=== PATIENT | female | born 1990 | race Caucasian/White ===

== ENCOUNTER 2017-06-29 16:06 | Emergency (ER) | payer OTHER ==
[~2017-06-29] VITALS: Ht 160 cm; Wt 112.5 kg
[2017-06-29 16:12] VITALS: Ht 160 cm; Wt 112.5 kg
[2017-06-29 17:06] LABS: BASOPHIL % 0.4 % (0-2); PLATELET COUNT 315 x10^3mcL (130-400); RED CELL DISTRIBUTION WIDTH 13.9 % (11.5-14.5)
[2017-06-29 17:22] LABS: CALCIUM 9.4 mg/dL (8.5-10.1); CARBON DIOXIDE 27.3 mmol/L (21-32); CHLORIDE SERUM 102 mmol/L (98-107); CREATININE SERUM 0.9 mg/dL (0.6-1.0); GFR1 > 60 mL/min; GLUCOSE SERUM 93 mg/dL (74-106); POTASSIUM SERUM 3.6 mmol/L (3.5-5.1); SODIUM SERUM 138 mmol/L (136-145)
[2017-06-29 17:37] LABS: microscopic required? YES; urine erythrocyte 3+ (NEGATIVE)
[2017-06-29 19:00] VITALS: BP 124/68
== END 2017-06-29 19:00 | disposition home or self-care (01) ==
LOC: ED 16:06
PROVIDERS: Emergency Medicine
DX: O20.0 Threatened abortion (principal); R82.71 Bacteriuria; Z3A.08 8 weeks gestation of pregnancy
CPT/HCPCS: 36415

== ENCOUNTER 2018-08-08 14:22 | Emergency (ER) | payer OTHER ==
[~2018-08-08] VITALS: Ht 160 cm; Wt 118.8 kg
[2018-08-08 14:41] VITALS: Ht 160 cm; Wt 118.8 kg
[2018-08-08 17:37] LABS: BASOPHIL % 0.2 % (0-2); PLATELET COUNT 305 x10^3mcL (130-400); RED CELL DISTRIBUTION WIDTH 13.6 % (11.5-14.5)
[2018-08-08 17:43] LABS: CALCIUM 8.7 mg/dL (8.5-10.1); CARBON DIOXIDE 29.5 mmol/L (21-32); CHLORIDE SERUM 104 mmol/L (98-107); CREATININE SERUM 0.8 mg/dL (0.6-1.0); GFR1 > 60 mL/min; GLUCOSE SERUM 86 mg/dL (74-106); POTASSIUM SERUM 3.8 mmol/L (3.5-5.1); SODIUM SERUM 140 mmol/L (136-145)
[2018-08-08 17:47] LABS: ALBUMIN 3.8 g/dL (3.4-5.0); ALKALINE PHOSPHATASE 72 U/L (46-116); ALT/SGPT 88 U/L (14-59); AST/SGOT 42 U/L (15-37); BILIRUBIN TOTAL 0.2 mg/dL (0.20-1.00); CHOLESTEROL 147 mg/dL (<200); TOTAL PROTEIN, SERUM 8.1 g/dL (6.4-8.2)
[2018-08-08 17:48] LABS: CHOLESTEROL/HDL RATIO 6.4; HDL CHOLESTEROL 23 mg/dL (40-60); TRIGLYCERIDES 410 mg/dL (<150)
[2018-08-08 18:03] LABS: AMPHETAMINE QUAL UR NONE DETECTED (See below)
[2018-08-08 19:32] VITALS: BP 115/82
== END 2018-08-08 19:32 | disposition home or self-care (01) ==
LOC: ED 14:22
PROVIDERS: Emergency Medicine
DX: R07.89 Other chest pain (principal); M94.0 Chondrocostal junction syndrome [Tietze]; E78.1 Pure hyperglyceridemia; F17.210 Nicotine dependence, cigarettes, uncomplicated; F14.10 Cocaine abuse, uncomplicated
CPT/HCPCS: 36415; 99406; Q0092